=== PATIENT | female | born 1995 | race African-American/Black ===

== ENCOUNTER 2017-04-25 09:19 | Emergency (ER) | payer MEDICAID ==
[~2017-04-25] VITALS: Ht 157.5 cm; Wt 45.0 kg
[2017-04-25] MEDS ORDERED: LIDOCAINE HCL 1% 20ML VIAL (Pyxis) INJ MC ONE (11:45)
[2017-04-25] MEDS ORDERED: TETANUS, DIPHTHERIA, PERTUSSIS VAC/PF 0.5ML (>7YR OLD) IM ONE (11:45)
[2017-04-25] MEDS ORDERED: ACETAMINOPHEN 325MG TABLET PO ONE (11:45)
[2017-04-25] MEDS ORDERED: LIDOCAINE HCL/PF 1% 10 MG/ML 5ML VIAL IJ ONE (11:53)
[2017-04-25 14:10] VITALS: BP 135/62
== END 2017-04-25 14:10 | disposition home or self-care (01) ==
LOC: ER 11:18
DX: S01.81XA Laceration without foreign body of other part of head, initial encounter (principal); F17.200 Nicotine dependence, unspecified, uncomplicated; R56.9 Unspecified convulsions; F12.10 Cannabis abuse, uncomplicated; W22.8XXA Striking against or struck by other objects, initial encounter; Y93.89 Activity, other specified; Y92.89 Other specified places as the place of occurrence of the external cause; Y99.8 Other external cause status
CPT/HCPCS: 12011; 70450; 81025; 90471; 90715; 99284; J3490; Z7610

== ENCOUNTER 2017-04-28 10:02 | Emergency (ER) | payer MEDICAID ==
[~2017-04-28] VITALS: Ht 160 cm; Wt 46.0 kg
[2017-04-28 12:47] VITALS: BP 92/51
== END 2017-04-28 12:50 | disposition home or self-care (01) ==
LOC: ER 10:02
DX: Z48.02 Encounter for removal of sutures (principal); J06.9 Acute upper respiratory infection, unspecified; F17.200 Nicotine dependence, unspecified, uncomplicated
CPT/HCPCS: 99283; 99406

== ENCOUNTER 2017-05-05 12:48 | Emergency (ER) | payer MEDICAID ==
[~2017-05-05] VITALS: Ht 175.3 cm; Wt 43.0 kg
[2017-05-05 13:09] VITALS: BP 99/50
== END 2017-05-05 17:15 | disposition left against medical advice (07) ==
LOC: ER 15:31
DX: Z53.21 Procedure and treatment not carried out due to patient leaving prior to being seen by health care provider (principal)

== ENCOUNTER 2017-05-08 17:53 | Emergency (ER) | payer MEDICAID ==
[~2017-05-08] VITALS: Ht 167.6 cm; Wt 43.0 kg
[2017-05-08 21:40] VITALS: BP 121/75
== END 2017-05-08 21:41 | disposition home or self-care (01) ==
LOC: ER 17:53
DX: S01.81XD Laceration without foreign body of other part of head, subsequent encounter (principal); F17.200 Nicotine dependence, unspecified, uncomplicated; F12.10 Cannabis abuse, uncomplicated; X58.XXXD Exposure to other specified factors, subsequent encounter; Y93.89 Activity, other specified; Y99.8 Other external cause status; Y92.89 Other specified places as the place of occurrence of the external cause
CPT/HCPCS: 99281; Z7610

== ENCOUNTER 2018-12-23 13:09 | Emergency (ER) | payer MEDICAID ==
[~2018-12-23] VITALS: Ht 170.2 cm; Wt 45.0 kg
[2018-12-23] MEDS ORDERED: SODIUM CHLORIDE 0.9% 1,000 ML IV ONE (13:30)
[2018-12-23] MEDS ORDERED: ONDANSETRON HCL 4MG/2ML INJ IV ONE (13:30)
[2018-12-23 13:53] LABS: BASOPHILS % 0.4 % (0.0-2.0); HEMATOCRIT. 38.1 % (36.0-48.0); HEMOGLOBIN. 12.7 g/dL (12.0-16.0); LYMPHOCYTES % 7.5 % (20.0-50.0); MEAN CORPUSCULAR HEMOGLOBIN 28.6 pg (28.0-32.0); MEAN CORPUSCULAR VOLUME 85.8 fL (81.0-99.0); MEAN PLATELET VOLUME 7.5 fl (7.4-10.4); MONOCYTES % 4.2 % (2.0-8.0); NEUTROPHILS % 87.9 % (40.0-76.0); PLATELET 399 x1000/uL (130-400); RED BLOOD CELL COUNT 4.44 mill/uL (4.2-5.4); RED CELL DISTRIBUTION WIDTH 15.9 % (11.6-14.6)
[2018-12-23 13:54] LABS: CHLORIDE 103 mEq/L (98-107)
[2018-12-23 13:55] LABS: PROTHROMBIN TIME 10.3 sec (9.6-11.0)
[2018-12-23] MEDS ORDERED: HALOPERIDOL LACTATE 5MG/ML VIAL IM ONE ×2 (14:15→14:30)
[2018-12-23 16:45] LABS: CLARITY URINE CLEAR (CLEAR); COLOR URINE DARK YELLOW (YELLOW); KETONES URINE 4+ (NEGATIVE); LEUKOCYTE ESTERASE URINE NEGATIVE (NEGATIVE); NITRITE URINE NEGATIVE (NEGATIVE); OCCULT BLOOD URINE NEGATIVE (NEGATIVE); PROTEIN URINE 2+ (NEGATIVE); SPECIFIC GRAVITY URINE 1.033 (1.005-1.030)
[2018-12-23 16:57] LABS: HCG SCREEN POSITIVE
[2018-12-23 19:12] VITALS: BP 130/75
== END 2018-12-23 23:00 | disposition home or self-care (01) ==
LOC: ER 13:09
DX: O21.0 Mild hyperemesis gravidarum (principal); O23.41 Unspecified infection of urinary tract in pregnancy, first trimester; F12.10 Cannabis abuse, uncomplicated; F17.210 Nicotine dependence, cigarettes, uncomplicated; Z3A.11 11 weeks gestation of pregnancy
CPT/HCPCS: 36415; 76801; 76817; 80053; 81003; 81025; 83690; 84702; 84703; 85025; 85610; 86850; 86900; 86901; 96372; 96374; 99284; 99406; J1630; J2405; J7030

== ENCOUNTER 2019-05-15 21:54 | Inpatient (IN) | payer MEDICAID ==
[~2019-05-15] VITALS: Ht 170.2 cm; Wt 45.9 kg
[~2019-05-15 21:54] MED LIST: DOXY100C2 MT
[2019-05-15] MEDS ORDERED: KETOROLAC 30MG/ML VIAL IV STA (22:18)
[2019-05-15] MEDS ORDERED: ONDANSETRON HCL 4MG/2ML INJ IV STA (22:18)
[2019-05-15] MEDS ORDERED: SODIUM CHLORIDE 0.9% 1,000 ML IV ONE (22:18)
[2019-05-15 22:44] LABS: BASOPHILS % 0.3 % (0.0-2.0); HEMATOCRIT. 37.8 % (36.0-48.0); HEMOGLOBIN. 12.3 g/dL (12.0-16.0); LYMPHOCYTES % 13.1 % (20.0-50.0); MEAN CORPUSCULAR VOLUME 85.9 fL (81.0-99.0); MEAN PLATELET VOLUME 7.5 fl (7.4-10.4); MONOCYTES % 4.7 % (2.0-8.0); NEUTROPHILS % 81.9 % (40.0-76.0); PLATELET 355 x1000/uL (130-400); RED CELL DISTRIBUTION WIDTH 19.9 % (11.6-14.6)
[2019-05-15 22:46] LABS: HCG SCREEN NEGATIVE
[2019-05-15 22:48] LABS: CHLORIDE 103 mEq/L (98-107)
[2019-05-15 22:52] LABS: ETHANOL BLOOD 24 mg/dL
[2019-05-15 22:54] LABS: CLARITY URINE CLEAR (CLEAR); COLOR URINE YELLOW (YELLOW); KETONES URINE 3+ (NEGATIVE); LEUKOCYTE ESTERASE URINE NEGATIVE (NEGATIVE); NITRITE URINE NEGATIVE (NEGATIVE); OCCULT BLOOD URINE 1+ (NEGATIVE); PH URINE 5.5 (4.5-8.0); PROTEIN URINE 2+ (NEGATIVE); SPECIFIC GRAVITY URINE 1.022 (1.005-1.030); UROBILINOGEN URINE 0.2 E.U./dL (0.2-1.0)
[2019-05-15 23:04] LABS: *AMPHETAMINES SCREEN URINE NEGATIVE (NEGATIVE); *BARBITURATES SCREEN URINE NEGATIVE (NEGATIVE); *BENZODIAZEPINES SCREEN URINE NEGATIVE (NEGATIVE); *COCAINE SCREEN URINE NEGATIVE (NEGATIVE)
[2019-05-15 23:05] LABS: METHADONE URINE SCREEN NEGATIVE (NEGATIVE); OPIATES URINE SCREEN NEGATIVE (NEGATIVE); PHENCYCLIDINE URINE SCREEN NEGATIVE (NEGATIVE)
[2019-05-15 23:11] LABS: CANNABINOID URINE SCREEN PRESUMTIVE POSITIVE (NEGATIVE)
[2019-05-15] MEDS ORDERED: DEXTROSE 50% WATER 50ML SYRINGE IV ONE (23:30)
[2019-05-15] MEDS ORDERED: SODIUM CHLORIDE 0.9% 1000ML BAG (SEPSIS BOLUS) IV ONE (23:30)
[2019-05-16] MEDS ORDERED: IOHEXOL-300 100 ML BOTTLE ONE (00:17)
[2019-05-16] MEDS ORDERED: MORPHINE SULFATE 4 MG/ML CPJ (NOT FOR IM USE) IV STA ×2 (00:17→01:56)
[2019-05-16] MEDS ORDERED: ONDANSETRON HCL 4MG/2ML INJ IV STA ×2 (00:17→01:56)
[2019-05-16] MEDS ORDERED: DOXYCYCLINE 100 MG in DEXT 5% WATER 100 ML IV STA (01:56)
[2019-05-16] MEDS ORDERED: CEFTRIAXONE 1 G PREMIX 50 ML IV ONE (02:00)
[2019-05-16] MEDS ORDERED: SODIUM CHLORIDE 0.9% 1,000 ML IV ONE (02:15)
[2019-05-16 04:06] VITALS: BP 126/49
[2019-05-16] MEDS ORDERED: MORPHINE SULFATE 2 MG/ML CPJ (NOT FOR IM USE) IV PRN (05:15)
[2019-05-16 08:00] VITALS: BP 102/58
[2019-05-16 08:48] LABS: HEMATOCRIT 34.6 % (36.0-48.0); HEMOGLOBIN 11.5 g/dL (12.0-16.0); MEAN CORPUSCULAR VOLUME 84.1 fL (81.0-99.0); PLATELET 288 x1000/uL (130-400); RED BLOOD CELL COUNT 4.11 mill/uL (4.2-5.4); RED CELL DISTRIBUTION WIDTH 19.6 % (11.6-14.6)
[2019-05-16 08:59] LABS: CHLORIDE 101 mEq/L (98-107)
[2019-05-16] MEDS ORDERED: ACETAMINOPHEN 325MG TABLET PO PRN (09:00)
[2019-05-16] MEDS ORDERED: ONDANSETRON HCL 4MG/2ML INJ IV PRN (09:00)
[2019-05-16] MEDS: METRONIDAZOLE 500 MG PREMIX 100 ML IV SCH ×2 (09:56→13:37)
[2019-05-16] MEDS ORDERED: CEFTRIAXONE 1 G PREMIX 50 ML IV SCH (10:00)
[2019-05-16 12:00] VITALS: BP 100/56
[2019-05-16 16:00] VITALS: BP 98/45
[2019-05-16] MEDS ORDERED: DOXYCYCLINE HYCLATE 100MG CAPSULE PO SCH (17:00)
[2019-05-19 07:08] LABS: NEISSERIA GONORRHOEAE NAA Negative (Negative)
== END 2019-05-16 20:16 | disposition left against medical advice (07) | DRG 249 ==
LOC: ER 21:54 → 5WST 05-16 02:20 → ENRESERV 05-16 02:50 → 5WST 05-16 04:10
PROVIDERS: ADMIT Internal Medicine; ATTEND Internal Medicine
DX: K52.9 Noninfective gastroenteritis and colitis, unspecified (principal); E87.1 Hypo-osmolality and hyponatremia; E87.2 Acidosis; F10.929 Alcohol use, unspecified with intoxication, unspecified; F15.90 Other stimulant use, unspecified, uncomplicated; Y90.1 Blood alcohol level of 20-39 mg/100 ml; Z72.0 Tobacco use
CPT/HCPCS: 36415; 71045; 74177; 76830; 76856; 80048; 80053; 80305; 80320; 81003; 81025; 82962; 83605; 84703; 85025; 85027; 87210; 87491; 87591; 93005; 96361; 96365; 96367; 96375; 96376; 99291; J0696; J1885; J2270; J2405; J3490; J7030; J7060; Q9967; G0480

== ENCOUNTER 2020-05-10 11:59 | Emergency (ER) | payer MEDICAID ==
[~2020-05-10] VITALS: Ht 165.1 cm; Wt 41.0 kg
[2020-05-10] MEDS ORDERED: ONDANSETRON HCL 4MG/2ML INJ IV STA (12:35)
[2020-05-10] MEDS ORDERED: MORPHINE SULFATE 4 MG/ML CPJ (NOT FOR IM USE) IV STA (12:35)
[2020-05-10] MEDS ORDERED: SODIUM CHLORIDE 0.9% 1,000 ML IV ONE (12:45)
[2020-05-10] MEDS ORDERED: LORAZEPAM 2MG/ML CPJ IV ONE (12:45)
[2020-05-10 13:00] LABS: BASOPHILS % 0.8 % (0.0-2.0); EOSINOPHILS % 0.6 % (0.0-5.0); HEMATOCRIT. 47.3 % (36.0-48.0); HEMOGLOBIN. 15.8 g/dL (12.0-16.0); MEAN CORPUSCULAR VOLUME 86.4 fL (81.0-99.0); MEAN PLATELET VOLUME 7.2 fl (7.4-10.4); MONOCYTES % 11.4 % (2.0-8.0); NEUTROPHILS % 64.2 % (40.0-76.0); PLATELET 437 x1000/uL (130-400); RED BLOOD CELL COUNT 5.47 mill/uL (4.2-5.4); RED CELL DISTRIBUTION WIDTH 20.9 % (11.6-14.6)
[2020-05-10 13:08] LABS: CHLORIDE 87 mEq/L (98-107)
[2020-05-10 13:16] LABS: ETHANOL BLOOD < 10 mg/dL
[2020-05-10 13:22] LABS: HCG SCREEN NEGATIVE
[2020-05-10] MEDS ORDERED: POTASSIUM CHLORIDE INJ 40 MEQ in DEXT 5% WATER 250 ML IV ONE (13:45)
[2020-05-10] MEDS ORDERED: POTASSIUM CHLORIDE 20MEQ TABLET SR PO ONE (15:00)
[2020-05-10] MEDS ORDERED: ONDA4TAB5 MT (15:07)
[2020-05-10] MEDS ORDERED: OMEP40CA12 MT (15:07)
[2020-05-10 16:45] VITALS: BP 116/73
== END 2020-05-10 16:51 | disposition home or self-care (01) ==
LOC: ER 11:59
DX: R10.9 Unspecified abdominal pain (principal); E87.6 Hypokalemia; N28.9 Disorder of kidney and ureter, unspecified; F17.200 Nicotine dependence, unspecified, uncomplicated; F12.10 Cannabis abuse, uncomplicated; F15.10 Other stimulant abuse, uncomplicated
CPT/HCPCS: 36415; 74176; 80053; 80320; 83690; 84703; 85025; 93005; 96365; 96375; 99285; J2060; J2270; J2405; J3480; J7030; J7060; Z7610; G0480

== ENCOUNTER 2020-07-13 17:34 | Emergency (ER) | payer MEDICAID ==
[~2020-07-13] VITALS: Ht 165.1 cm; Wt 55.0 kg
[~2020-07-13 17:34] MED LIST changes: -DOXY100C2 MT; +OMEP40CA12 MT; +ONDA4TAB5 MT
[2020-07-13 17:51] VITALS: BP 118/92
== END 2020-07-13 18:44 | disposition left against medical advice (07) ==
LOC: ER 17:34
DX: Z53.21 Procedure and treatment not carried out due to patient leaving prior to being seen by health care provider (principal)
CPT/HCPCS: 93005

== ENCOUNTER 2020-07-13 22:34 | Emergency (ER) | payer MEDICAID ==
[~2020-07-13] VITALS: Ht 167.6 cm; Wt 50.0 kg
[2020-07-13] MEDS ORDERED: VISCOUS LIDOCAINE 2% 15 ML UDC PO STA (23:03)
[2020-07-13] MEDS ORDERED: ONDANSETRON HCL 4MG/2ML INJ IV STA (23:03)
[2020-07-13] MEDS ORDERED: MAGNESIUM/ALUMINUM HYDROXIDE/SIMETHICONE 30ML UDC PO STA (23:03)
[2020-07-13] MEDS ORDERED: SODIUM CHLORIDE 0.9% 1,000 ML IV ONE (23:15)
[2020-07-13] MEDS ORDERED: HALOPERIDOL LACTATE 5MG/ML VIAL IM ONE (23:15)
[2020-07-14 00:18] LABS: BASOPHILS % 0.4 % (0.0-2.0); HEMATOCRIT. 42.8 % (36.0-48.0); HEMOGLOBIN. 14.5 g/dL (12.0-16.0); LYMPHOCYTES % 7.4 % (20.0-50.0); MEAN CORPUSCULAR HEMOGLOBIN 29.6 pg (28.0-32.0); MEAN CORPUSCULAR VOLUME 87.3 fL (81.0-99.0); MEAN PLATELET VOLUME 7.3 fl (7.4-10.4); MONOCYTES % 4.7 % (2.0-8.0); NEUTROPHILS % 87.5 % (40.0-76.0); PLATELET 417 x1000/uL (130-400); RED CELL DISTRIBUTION WIDTH 17.3 % (11.6-14.6)
[2020-07-14 00:25] LABS: CHLORIDE 98 mEq/L (98-107)
[2020-07-14 00:29] LABS: ETHANOL BLOOD < 10 mg/dL
[2020-07-14 04:55] LABS: CLARITY URINE CLEAR (CLEAR); COLOR URINE YELLOW (YELLOW); KETONES URINE 3+ (NEGATIVE); LEUKOCYTE ESTERASE URINE NEGATIVE (NEGATIVE); NITRITE URINE NEGATIVE (NEGATIVE); OCCULT BLOOD URINE TRACE (NEGATIVE); PROTEIN URINE 2+ (NEGATIVE); SPECIFIC GRAVITY URINE 1.032 (1.005-1.030); UROBILINOGEN URINE 0.2 E.U./dL (0.2-1.0)
[2020-07-14 05:05] LABS: *AMPHETAMINES SCREEN URINE NEGATIVE (NEGATIVE); *BARBITURATES SCREEN URINE NEGATIVE (NEGATIVE); *BENZODIAZEPINES SCREEN URINE NEGATIVE (NEGATIVE)
[2020-07-14 05:06] LABS: METHADONE URINE SCREEN NEGATIVE (NEGATIVE); OPIATES URINE SCREEN NEGATIVE (NEGATIVE); PHENCYCLIDINE URINE SCREEN NEGATIVE (NEGATIVE)
[2020-07-14 05:08] LABS: *COCAINE SCREEN URINE PRESUMTIVE POSITIVE (NEGATIVE); CANNABINOID URINE SCREEN PRESUMTIVE POSITIVE (NEGATIVE)
[2020-07-14 05:34] VITALS: BP 104/67
== END 2020-07-14 05:36 | disposition home or self-care (01) ==
LOC: ER 22:34
DX: R10.9 Unspecified abdominal pain (principal); F14.10 Cocaine abuse, uncomplicated; F12.10 Cannabis abuse, uncomplicated; R11.10 Vomiting, unspecified
CPT/HCPCS: 36415; 76700; 80053; 80305; 80320; 81003; 81025; 83690; 85025; 93005; 96361; 96372; 96374; 99285; J1630; J2405; J7030; G0480

== ENCOUNTER 2021-04-15 07:38 | Emergency (ER) | payer MEDICAID ==
[~2021-04-15] VITALS: Ht 167.6 cm; Wt 45.0 kg
[~2021-04-15 07:38] MED LIST changes: -OMEP40CA12 MT; +OMEP40CA20 MT
[2021-04-15] MEDS ORDERED: ONDANSETRON 4MG ODT PO STA (07:49)
[2021-04-15] MEDS ORDERED: HALOPERIDOL LACTATE 5MG/ML VIAL IM ONE (08:00)
[2021-04-15 08:34] LABS: CLARITY URINE CLEAR (CLEAR); COLOR URINE YELLOW (YELLOW); KETONES URINE 3+ (NEGATIVE); LEUKOCYTE ESTERASE URINE NEGATIVE (NEGATIVE); NITRITE URINE NEGATIVE (NEGATIVE); OCCULT BLOOD URINE 2+ (NEGATIVE); PROTEIN URINE 2+ (NEGATIVE); SPECIFIC GRAVITY URINE 1.021 (1.005-1.030); UROBILINOGEN URINE 0.2 E.U./dL (0.2-1.0)
[2021-04-15 09:52] LABS: BASOPHILS % 0.3 % (0.0-2.0); HEMATOCRIT. 36.6 % (36.0-48.0); HEMOGLOBIN. 12.1 g/dL (12.0-16.0); LYMPHOCYTES % 15.1 % (20.0-50.0); MEAN CORPUSCULAR HEMOGLOBIN 27.8 pg (28.0-32.0); MEAN PLATELET VOLUME 7.2 fl (7.4-10.4); MONOCYTES % 4.6 % (2.0-8.0); PLATELET 317 x1000/uL (130-400); RED BLOOD CELL COUNT 4.36 mill/uL (4.2-5.4); RED CELL DISTRIBUTION WIDTH 19.9 % (11.6-14.6)
[2021-04-15 09:56] LABS: CHLORIDE 105 mEq/L (98-107)
[2021-04-15 10:02] LABS: HCG SCREEN NEGATIVE
[2021-04-15] MEDS ORDERED: ONDA4TAB5 MT (10:32)
[2021-04-15 11:40] VITALS: BP 127/72
== END 2021-04-15 11:46 | disposition home or self-care (01) ==
LOC: ER 07:57
DX: R10.9 Unspecified abdominal pain (principal)
CPT/HCPCS: 36415; 74176; 80053; 81003; 81025; 83690; 84703; 85025; 96372; 99284; J1630; Q0162; Z7610

== ENCOUNTER 2022-08-03 06:38 | Emergency (ER) | payer MEDICAID ==
[2022-08-03] MEDS ORDERED: MAGNESIUM/ALUMINUM HYDROXIDE/SIMETHICONE 30ML UDC PO STA (06:50)
[2022-08-03] MEDS ORDERED: ACETAMINOPHEN 325MG TABLET PO STA (06:50)
[2022-08-03] MEDS ORDERED: SODIUM CHLORIDE 0.9% 1,000 ML IV ONE ×2 (07:00→09:00)
[2022-08-03 07:21] LABS: BASOPHILS % 0.2 % (0.0-2.0); HEMATOCRIT. 41.5 % (36.0-48.0); HEMOGLOBIN. 14.2 g/dL (12.0-16.0); LYMPHOCYTES % 7.9 % (20.0-50.0); MEAN CORPUSCULAR HEMOGLOBIN 29.7 pg (28.0-32.0); MEAN CORPUSCULAR VOLUME 86.6 fL (81.0-99.0); MEAN PLATELET VOLUME 6.7 fl (7.4-10.4); MONOCYTES % 4.3 % (2.0-8.0); NEUTROPHILS % 87.6 % (40.0-76.0); PLATELET 510 x1000/uL (130-400); RED BLOOD CELL COUNT 4.79 mill/uL (4.2-5.4); RED CELL DISTRIBUTION WIDTH 15.6 % (11.6-14.6)
[2022-08-03 07:32] LABS: CHLORIDE 97 mEq/L (98-107)
[2022-08-03 07:39] LABS: ETHANOL BLOOD < 10 mg/dL (-10)
[2022-08-03 08:02] LABS: HCG SCREEN NEGATIVE
[2022-08-03] MEDS ORDERED: ONDANSETRON HCL 4MG/2ML INJ IV ONE (09:00)
[2022-08-03] MEDS ORDERED: HALOPERIDOL LACTATE 5MG/ML VIAL IM ONE (09:00)
[2022-08-03 10:03] VITALS: BP 109/66
== END 2022-08-03 10:24 | disposition home or self-care (01) ==
LOC: ER 06:49
DX: R10.9 Unspecified abdominal pain (principal)
CPT/HCPCS: 36415; 74176; 80053; 80320; 83690; 84703; 85025; 96361; 96372; 96374; 99285; J1630; J2405; J7030; Z7610; G0480